=== PATIENT | female | born 1950 | race Caucasian/White ===

== ENCOUNTER 2017-04-23 13:29 | Emergency (ER) | payer MEDICARE, OTHER ==
[~2017-04-23] VITALS: Ht 162.6 cm; Wt 93.2 kg
[2017-04-23 13:31] VITALS: BP 130/64; PULSE 63; RESP 18; O2SAT 98
--- NOTE | 2017-04-23 13:52 | ED.REPORT ---
HPI-Headache Date of Service Apr 23, 2017 ED Provider: Aracely Mathis History of Present Illness: 66 year old female here for head pain after a fall. She tripped over the curb at her house and landed face first hitting her left forehead first and then scraping up her knees and arms. She states there was a significant impact. No loss of consciousness. She does have a headache now and feels a little woozy. Otherwise neurally intact. She has abrasions on her right wrist and left knee and left forearm. These are superficial and bandaged. She also complains of a stiff left sided neck. On baby aspirin daily Nursing Notes Stated Complaint: HEAD INJURY Chief Complaint: Multiple Trauma/Fall Allergies: Uncoded Allergies: SULFA (Allergy, Intermediate, ORAL SORES, 09/08/09) General Time Seen by MD: 13:39 Chief Complaint Headache Hx Obtained From: Patient Arrived By: Walk-in Sudden in Onset?: Yes Onset Occurred: 1 - 4 hours ago Symptom Duration: Since onset Location: : Frontal left Severity: Current: Moderate Severity: Maximum: Moderate Similar Sx Previous: No Risk-Headache Risk Notes: on asa Past Medical History Past Medical History Notes: HTN, diabetes Review of Systems Basic Review of Systems Respiratory: No shortness of breath Cardiovascular: No chest pain Constitutional: Denies: Chills, Fatigue, Fever Eyes: Denies: Blurred bilateral, Visual loss bilateral GI: Denies: Nausea, Vomiting Musculoskeletal: Reports: Back pain, Extremity pain, Neck pain Neurologic: Reports: Headache, Denies: Abnormal movement, Change LOC, Confusion, Dizziness Psychiatric: Denies: Agitation, Anxiety, Change mental status Complete sys rev & neg: except as marked. Physical Exam Initial Vital Signs Vital Signs (First) Date Time Temp Pulse Resp B/P Pulse Ox O2 Delivery O2 Flow Rate FiO2 04/23/17 13:31 36.6 63 18 130/64 98 Room Air Initial VS: Reviewed, Vital signs normal ENT: Mucous membranes moist, Conjunctiva normal, No scleral icterus Respiratory: Breath sounds normal, Clear to auscultation, No respiratory distress Extremities: Vascular intact, Neuro intact, No swelling, No tenderness Skin: Warm, Dry, No cyanosis Psychiatric: Mood/affect normal, Behavior normal, Normal thought content General/Constitutional: Awake, Alert large lump/contusion L forehead. 3x3in approx. not bleeding, L TMJ tenderness. teeth align normally. no other facial tenderness Neck: Supple, No meningismus, Full range of motion, No swelling, Non-tender, No masses mild L sided paracervical msk tenderness Neurologic: Oriented X3, Speech NL, No motor deficits, No sensory deficits, CN II - XII intact, Cerebellar NL Respiratory / Chest: Breath sounds NL, Breath sounds = bilat, No respiratory distress, No rales, No rhonchi, No wheezing superficial abrasians to L knee, R wrist, L forearm Interpretation & Diagnostics CT Head Interpretation ervice: 04/23/17 1400 PROCEDURE: CT BRAIN WITHOUT CONTRAST ([id number]) INDICATIONS: fall TECHNIQUE: Noncontrast 4.5 mm thick angled axial sections acquired from the foramen magnum to the vertex, with coronal reformats. COMPARISON: None. FINDINGS: Image quality: Excellent. CSF spaces: Basal cisterns are patent. No extra-axial fluid collections. Ventricles are normal in size and shape. Brain: No intracranial hemorrhage, mass, or mass effect. Foster-white matter interface is preserved. Skull and face: There is left frontal scalp soft tissue swelling. Calvarium and visualized facial bones are intact, without suspicious lesions. Sinuses: Visualized sinuses and mastoids are clear. IMPRESSION: 1. No acute intracranial abnormality. 2. Left frontal scalp soft tissue swelling without associated fracture. Re-Eval/Medical Decision Med Decision/Clinical Course Normal head CT patient is actually feeling better left head pain is no longer feeling woozy ready for discharge Discharge & Departure Shift Change Sign-Out Imaging Studies: Imaging discussed Procedures: Results discussed Response to Therapy: Improved Impression: Primary Impression: Contusion of head Encounter type: initial encounter Contusion of head detail: unspecified part of head Qualified Code: S00.93XA - Contusion of unspecified part of head , initial encounter Additional Impression: Neck muscle strain Encounter type: initial encounter Qualified Code: S16.1XXA - Strain of muscle, fascia and tendon at neck level, initial encounter Disposition: Home Discharge Condition All VS Reviewed: Yes Condition: Stable Patient Instructions: Contusion in Adults (ED) Additional Instructions: Apply ice to head wound, use ice and heat alternating for your sore neck. Return to ER immediately if altered level consciousness, projectile vomiting, severe head pain for any worsening condition. Otherwise follow up with your doctor later this week if continued symptoms. Light activity as tolerated but the rest of hydration. Watch for signs of concussion and back off your activity these occur as discussed. Referrals: (Family) EDSupervising Provider for APC: Alejandro Cam MD, Linnea K ARNP Apr 23, 2017 13:51
--- NOTE | 2017-04-23 15:31 | DRSVH ---
PROCEDURE: CT BRAIN WITHOUT CONTRAST ([id number]) INDICATIONS: fall TECHNIQUE: Noncontrast 4.5 mm thick angled axial sections acquired from the foramen magnum to the vertex, with c oronal reformats. COMPARISON: None. FINDINGS: Image quality: Excellent. CSF spaces: Basal cisterns are patent. No extra-axial fluid collections. Ventricles are normal in size and shape. Brain: No intracranial hemorrhage, mass, or mass effect. Foster-white matter interface is preserved. Skull and face: There is left frontal scalp soft tissue swelling. Calvarium and visualized facial b ones are intact, without suspicious lesions. Sinuses: Visualized sinuses and mastoids are clear. IMPRESSION: 1. No acute intracranial abnormality. 2. Left frontal scalp soft tissue swelling without associated fracture. Dictated by: Jackson Valdez M.D. on 04/23/2017 at 15:28 Approved by: Jackson Valdez M.D. on 04/23/2017 at 15:30
[2017-04-23 16:36] VITALS: BP 134/67; PULSE 67; RESP 16; O2SAT 97
== END 2017-04-23 16:24 | disposition home or self-care (01) ==
LOC: SED 13:29
DX: S16.1XXA Strain of muscle, fascia and tendon at neck level, initial encounter (principal); S00.93XA Contusion of unspecified part of head, initial encounter; S80.212A Abrasion, left knee, initial encounter; S60.811A Abrasion of right wrist, initial encounter; S50.812A Abrasion of left forearm, initial encounter; W01.198A Fall on same level from slipping, tripping and stumbling with subsequent striking against other object, initial encounter; Y93.01 Activity, walking, marching and hiking; Y99.8 Other external cause status; Y92.018 Other place in single-family (private) house as the place of occurrence of the external cause; M54.2 Cervicalgia; I10 Essential (primary) hypertension; E11.9 Type 2 diabetes mellitus without complications; Z79.82 Long term (current) use of aspirin; Z88.2 Allergy status to sulfonamides